=== PATIENT | male | born 1980 | race Caucasian/White ===

== ENCOUNTER 2017-05-25 21:43 | Emergency (ER) | payer SELFPAY ==
[2017-05-25 23:26] VITALS: BP 120/62; PULSE 70; TEMP 98.2; BMI 29.9
[2017-05-26] MEDS ORDERED: KETOROLAC TROMETHAMINE 60 MG/2 ML VIAL IM ONE (02:17)
--- NOTE | 2017-05-26 02:18 | PDOC ---
History of Present Illness - General Chief Complaint: Back Pain Stated Complaint: BACK PAIN Time Seen by Provider: 05/26/17 00:24 - History of Present Illness Initial Comments: 05/26/17 02:18 Chief Complaint: back pain History of Present Illness: 37 yo M with hx of sciatica presents to ED with back pain. Patient states he had an MRI that indicated disc herniation. Past Medical History: sciatica Family History: Denies Social History: Denies toxic habits Surgical history: Denies Allergies: No known drug allergies Review of Systems: GENERAL/CONSTITUTIONAL: No fever or chills. No weakness. No weight change. HEAD, EYES, EARS, NOSE AND THROAT: No change in vision. No ear pain or discharge. No sore throat. CARDIOVASCULAR: No chest pain or shortness of breath. RESPIRATORY: No cough, wheezing, or hemoptysis. GASTROINTESTINAL: No nausea, vomiting, diarrhea or constipation. No rectal bleeding. GENITOURINARY: No dysuria, frequency, or change in urination. MUSCULOSKELETAL: No joint or muscle swelling or pain. No neck or back pain. SKIN AND BREASTS: No rash or easy bruising. NEUROLOGIC: No headache, vertigo, loss of consciousness, or loss of sensation. PSYCHIATRIC: No depression or anxiety. ENDOCRINE: No increased thirst. No abnormal weight change. HEMATOLOGIC/LYMPHATIC: No anemia, easy bleeding, or history of blood clots. ALLERGIC/IMMUNOLOGIC: No hives or skin allergy. No latex allergy. Physical Exam: General Appearance: positive: Appropriately Dressed. negative: Apparent Distress, no intoxication HEENT: positive: EOMI, ODIN, Normal ENT Inspection, Normal Voice, TMs Normal, Pharynx Normal. No Palor of Conjunctivae, Photophobia, Scleral Icterus (R), Scleral Icterus (L) Neck: positive: Trachea midline, Normal Thyroid, Supple. No tenderness, rigidity, Carotid bruit, Stridor, Lymphadenopathy (R), Lymphadenopathy (L), Thyromegaly] Respiratory/Chest: positive: Lungs Clear, Normal Breath Sounds. No Chest Tenderness, Respiratory Distress, Accessory Muscle Use, Labored Respiration, Crackles, Rales, Rhonchi, Stridor, Wheezing, Dullness Cardiovascular: Regular Rhythm, Regular Rate, S1, S2. No JVD, Murmur, Bradycardia, Tachycardia Vascular Pulses: Dorsalis-Pedis (R): 2+, Doralis-Pedis (L): 2+] Gastrointestinal/Abdominal: positive for Normal Bowel Sounds, Flat, Soft. No Tenderness, Organomegaly, Pulsatile Mass, Distention, Guarding, Rebound, Hernia , Hepatomegaly, Spleenomegaly] Lymphatic: negative: Adenopathy, Tenderness] Musculoskeletal: Normal Inspection. No CVA Tenderness, Decreased Range of Motion] Extremity: FROM of all extremities, Normal Capillary Refill, Normal Inspection, Normal Range of Motion, Pelvis Stable. No tenderness, Pedal Edema, Swelling, Erythema or deformity Integumentary: Normal Color, Dry, Warm, . 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 No appreciable EOM Palsy, Facial Droop or Sensory Deficit Past History - Past Medical History Allergies/Adverse Reactions: Allergies Allergy/AdvReac Type Severity Reaction Status Date / Time No Known Allergies Allergy Verified 05/25/17 23:20 Home Medications: Ambulatory Orders Diazepam [Valium] 5 mg PO BID PRN #8 tablet MDD 2 12/18/15 Ibuprofen [Motrin -] 600 mg PO TID PRN #21 tablet 12/18/15 Oxycodone HCl/Acetaminophen [Percocet 5-325 mg Tablet] 1 - 2 tab PO Q4H #10 tablet MDD 5 12/19/15 Cyclobenzaprine HCl [Flexeril -] 10 mg PO HS #7 tablet 05/26/17 Naproxen 250 mg PO BID #14 tablet 05/26/17 - Suicide/Smoking/Psychosocial Hx Smoking History: Never smoked Have you smoked in the past 12 months: No Number of Cigarettes Smoked Daily: 0 Information on smoking cessation initiated: No Hx Alcohol Use: No Drug/Substance Use Hx: No Substance Use Type: None *Physical Exam - Vital Signs Last Vital Signs Temp Pulse Resp BP Pulse Ox 98.2 F 70 18 120/62 99 05/25/17 23:15 05/25/17 23:15 05/25/17 23:15 05/25/17 23:15 05/25/17 23:15 *DC/Admit/Observation/Transfer Diagnosis at time of Disposition: Sciatica, right side - Discharge Dispostion Disposition: HOME Condition at time of disposition: Stable Admit: No - Prescriptions Prescriptions: Cyclobenzaprine HCl [Flexeril -] 10 mg PO HS #7 tablet Naproxen 250 mg PO BID #14 tablet - Referrals Referrals: Devon Zurita MD [Staff Physician] - - Patient Instructions Printed Discharge Instructions: DI for Back Pain With Sciatica Additional Instructions: Please take medications as prescribed; do not drive, drink alcohol, or operate machinery while taking cyclobenzaprine. You must follow up with orthopedics by the end of the week. If you develop any loss of bowel or bladder function, loss of sensation to your legs, inability to walk , or any new or worsening symptoms, please return to the ER. Print Language: MAORI
[2017-05-26] MEDS ORDERED: KETOROLAC TROMETHAMINE 60 MG/2 ML VIAL ONE (02:47)
== END 2017-05-26 04:09 | disposition home or self-care (01) ==
LOC: JER 21:43
PROC: 3E0233Z Introduction of Anti-inflammatory into Muscle, Percutaneous Approach (ICD-10-PCS; principal; 2017-05-25)
DX: M54.31 Sciatica, right side (principal)
CPT/HCPCS: 99282-25

== ENCOUNTER 2018-06-16 18:14 | Emergency (ER) | payer OTHER ==
--- NOTE | 2018-06-16 18:20 | PDOC ---
Rapid Medical Evaluation Time Seen by Provider: 06/16/18 18:17 Medical Evaluation: Allergies Allergy/AdvReac Type Severity Reaction Status Date / Time No Known Allergies Allergy Verified 06/16/18 18:17 06/16/18 18:18 Pt c/o: low back pain w/ rt sided sciatica, no improvement with flexeril, no weakness, incontinence, hx of LBP x many years, had imaging prior, seenn here for the same Pt on brief exam:no midline tenderness, rt paraspinous and sciatica tenderness. Pt ordered for: none pt to proceed to the ED: Discharge Disposition - Diagnosis Lumbar pain with radiation down right leg - Referrals - Patient Instructions - Post Discharge Activity
[2018-06-16 18:21] VITALS: BP 125/59; PULSE 66; TEMP 97.4; BMI 29.9
--- NOTE | 2018-06-16 18:39 | PDOC ---
History of Present Illness - General Chief Complaint: Back Pain Stated Complaint: BACK PAIN Time Seen by Provider: 06/16/18 18:17 - History of Present Illness Initial Comments: 38-year-old male without comorbidities presents for evaluation of lumbar radicular symptoms down the right leg for 2 weeks without any precipitating traumatic event. He has a chronic history of back pain and radicular symptoms. He denies loss of bowel bladder function. No saddle paresthesias. 06/16/18 18:37 Past History - Past Medical History Allergies/Adverse Reactions: Allergies Allergy/AdvReac Type Severity Reaction Status Date / Time No Known Allergies Allergy Verified 06/16/18 18:17 Home Medications: Ambulatory Orders Ibuprofen [Motrin -] 600 mg PO TID PRN #21 tablet 12/18/15 Cyclobenzaprine HCl [Flexeril -] 10 mg PO HS #7 tablet 05/26/17 Methylprednisolone [Medrol Dose Minh] 4 mg PO ASDIR #21 tablet 06/16/18 COPD: No Other medical history: sciatica - Surgical History Abdominal Surgery: No Appendectomy: No Cardiac Surgery: No Cholecystectomy: No Gastric Stapling: No GI Surgery: No Lung Surgery: No Neurologic Surgery: No - Immunization History Immunization Up to Date: No - Suicide/Smoking/Psychosocial Hx Smoking History: Never smoked Have you smoked in the past 12 months: No Number of Cigarettes Smoked Daily: 0 Hx Alcohol Use: No Drug/Substance Use Hx: No Substance Use Type: None Review of Systems - Review of Systems Musculoskeletal: Yes: Back Pain All Other Systems: Reviewed and Negative *Physical Exam - Vital Signs Last Vital Signs Temp Pulse Resp BP Pulse Ox 97.4 F L 66 18 125/59 L 99 06/16/18 18:19 06/16/18 18:19 06/16/18 18:19 06/16/18 18:19 06/16/18 18:19 - Physical Exam Comments: Lumbar spine skin color and temperature are normal range of motion is decreased is moderate right-sided paralumbar musculature spasm and tenderness 5 out of 5 strength bilateral lower extremities without gross sensorimotor deficits. Positive straight leg raise test on the right negative on the left thighs and calves are soft and nontender neurovascular intact 06/16/18 18:38 Medical Decision Making - Medical Decision Making Exacerbation of lumbar radicular symptoms without focal deficits. Discontinue the ibuprofen start a Medrol Dosepak continue Flexeril follow-up with spine surgery 06/16/18 18:38 *DC/Admit/Observation/Transfer Diagnosis at time of Disposition: Lumbar pain with radiation down right leg - Discharge Dispostion Disposition: HOME Condition at time of disposition: Stable Decision to Admit order: No - Prescriptions Prescriptions: Methylprednisolone [Medrol Dose Minh] 4 mg PO ASDIR #21 tablet - Referrals Referrals: Devon Cain MD [Staff Physician] - - Patient Instructions Printed Discharge Instructions: Lumbar Radiculopathy, DI for Lumbar Radiculopathy Additional Instructions: Discontinue the ibuprofen. You may continue your Flexeril. Start the steroid pack and use the medication and finish it as directed. Return to the emergency room should her symptoms worsen or go unresolved. Follow-up with spine surgery in 2-3 days for further evaluation and treatment options. - Post Discharge Activity
== END 2018-06-16 18:59 | disposition home or self-care (01) ==
LOC: JERFT 18:14
DX: M54.16 Radiculopathy, lumbar region (principal)
CPT/HCPCS: 99281-25

== ENCOUNTER 2019-10-05 19:30 | Emergency (ER) | payer OTHER ==
[2019-10-05 19:48] VITALS: BP 135/93; PULSE 83; TEMP 98; BMI 30.7
--- NOTE | 2019-10-05 19:49 | PDOC ---
Rapid Medical Evaluation Time Seen by Provider: 10/05/19 19:46 Medical Evaluation: Allergies Allergy/AdvReac Type Severity Reaction Status Date / Time No Known Allergies Allergy Verified 06/16/18 18:17 10/05/19 19:47 Pt presents to the ER for evaluation of low back pain for 3 days. He states this is a exacerbation of his chronic pain. He has an appointment with his doctor on Thursday, but couldn't wait d/t the pain. No saddle anesthesia or bladder/bowel incontinence. Exam: Midline tenderness to L4-L5. (+) straight leg raise testing on the R. Orders: toradol, lidocaine patch Pt to proceed to the ER for further evaluation Discharge Disposition - Diagnosis Pain in lower back - Referrals - Patient Instructions - Post Discharge Activity
[2019-10-05] MEDS ORDERED: KETOROLAC TROMETHAMINE 60 MG/2 ML VIAL IM ONE (20:13)
[2019-10-05] MEDS ORDERED: KETOROLAC TROMETHAMINE 60 MG/2 ML VIAL ONE (20:17)
--- NOTE | 2019-10-05 20:17 | PDOC ---
History of Present Illness - General Chief Complaint: Chronic pain Stated Complaint: BACK PAIN Time Seen by Provider: 10/05/19 19:46 - History of Present Illness Initial Comments: 10/05/19 20:14 39-year-old male without comorbidities presents for lower back pain with posterior lateral leg right leg radicular symptoms x2 days patient ran out of his Flexeril Past History - Past Medical History Allergies/Adverse Reactions: Allergies Allergy/AdvReac Type Severity Reaction Status Date / Time No Known Allergies Allergy Verified 10/05/19 19:48 Home Medications: Ambulatory Orders Ibuprofen [Motrin -] 600 mg PO TID PRN #21 tablet 12/18/15 Cyclobenzaprine HCl [Flexeril -] 10 mg PO HS #7 tablet 05/26/17 Methylprednisolone [Medrol Dose Minh] 4 mg PO ASDIR #21 tablet 06/16/18 Cyclobenzaprine HCl [Flexeril 10 mg] 10 mg PO HS PRN #10 tablet 10/05/19 Methylprednisolone [Medrol Dose Minh] 4 mg PO ASDIR #21 tablet 10/05/19 COPD: No - Surgical History Abdominal Surgery: No Appendectomy: No Cardiac Surgery: No Cholecystectomy: No Gastric Stapling: No GI Surgery: No Lung Surgery: No Neurologic Surgery: No - Immunization History Immunization Up to Date: No - Psycho Social/Smoking Cessation Hx Smoking History: Never smoked Have you smoked in the past 12 months: No Number of Cigarettes Smoked Daily: 0 Information on smoking cessation initiated: No Hx Alcohol Use: No Drug/Substance Use Hx: No Substance Use Type: None Review of Systems - Review of Systems Constitutional: No: Fever Musculoskeletal: Yes: Back Pain *Physical Exam - Vital Signs Last Vital Signs Temp Pulse Resp BP Pulse Ox 98.0 F 83 17 135/93 99 10/05/19 19:46 10/05/19 19:46 10/05/19 19:46 10/05/19 19:46 10/05/19 19:46 - Physical Exam Lumbar spine skin color temperature normal range of motion is slightly decreased. No midline tenderness. Moderate bilateral paralumbar musculature spasm and tenderness 5 out of 5 strength bilateral lower extremities without gross sensorimotor deficits thighs and calves are soft and nontender neurovascular intact Medical Decision Making - Medical Decision Making 10/05/19 20:15 Patient is on Aleve at home I will stop that today given a shot of Toradol in the emergency room he took Aleve this morning Flexeril and Medrol Dosepak follow -up with neurosurgery ongoing lower back pain unrelieved with pain management and conservative measures Discharge - Discharge Information Problems reviewed: Yes Clinical Impression/Diagnosis: Pain in lower back, Lumbar pain with radiation down right leg Condition: Stable Disposition: HOME - Admission No - Additional Discharge Information Prescriptions: Cyclobenzaprine HCl [Flexeril 10 mg] 10 mg PO HS PRN #10 tablet PRN Reason: Muscle Spasms Methylprednisolone [Medrol Dose Minh] 4 mg PO ASDIR #21 tablet - Follow up/Referral Referrals: Brandon Abrams MD, [facility] [Staff Physician] - - Patient Discharge Instructions Additional Instructions: You were given a shot of a long-acting anti-inflammatory in the emergency room. No anti-inflammatories going forward until you are seen by the specialist. Please start the Medrol Dosepak tomorrow and take the medication as directed you may start the Flexeril this evening. It will help you sleep 1 tablet before bedtime it would also help with your muscle spasm. Return to the emergency room for worsening symptoms. And without fail follow-up with neurosurgery in 2 to 3 days for further evaluation and treatment options. - Post Discharge Activity
== END 2019-10-05 20:21 | disposition home or self-care (01) ==
LOC: JERFT 19:30
PROC: 3E0233Z Introduction of Anti-inflammatory into Muscle, Percutaneous Approach (ICD-10-PCS; principal; 2019-10-05)
DX: M54.5 Low back pain (principal)
CPT/HCPCS: 99282-25

== ENCOUNTER 2019-10-17 15:18 | Emergency (ER) | payer OTHER ==
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
[2019-10-17 15:44] VITALS: BP 124/78; PULSE 80; TEMP 98.5; BMI 29.0
[2019-10-17 16:13] LABS: URINE APPEARANCE CLEAR; URINE BILIRUBIN NEGATIVE (NEGATIVE); URINE COLOR YELLOW; URINE GLUCOSE (UA) NEGATIVE (NEGATIVE); URINE KETONE NEGATIVE (NEGATIVE); URINE LEUK ESTERASE NEGATIVE (NEGATIVE); URINE NITRITE NEGATIVE (NEGATIVE); URINE PROTEIN NEGATIVE (NEGATIVE)
[2019-10-17] MEDS ORDERED: KETOROLAC TROMETHAMINE 60 MG/2 ML VIAL ONE ×2 (18:00→18:06)
[2019-10-17] MEDS ORDERED: KETOROLAC TROMETHAMINE 60 MG/2 ML VIAL IM ONE (18:01)
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
== END 2019-10-17 18:08 | disposition home or self-care (01) ==
LOC: JERFT 15:18
PROC: 3E0233Z Introduction of Anti-inflammatory into Muscle, Percutaneous Approach (ICD-10-PCS; principal; 2019-10-17)
DX: Z04.1 Encounter for examination and observation following transport accident (principal); M54.5 Low back pain; V43.52XA Car driver injured in collision with other type car in traffic accident, initial encounter; Y92.414 Local residential or business street as the place of occurrence of the external cause; Y93.89 Activity, other specified; Y99.8 Other external cause status
CPT/HCPCS: 72100-TC-FY; 81003; 99284-25

== ENCOUNTER 2021-04-05 16:08 | Emergency (ER) | payer OTHER ==
[2021-04-05 16:42] VITALS: BP 129/83; PULSE 97; TEMP 97.7; BMI 31.3
== END 2021-04-05 17:21 | disposition home or self-care (01) ==
LOC: JER 16:08
DX: R09.81 Nasal congestion (principal); Z11.52 Encounter for screening for COVID-19
CPT/HCPCS: 99283-25; C9803; U0003; U0005

== ENCOUNTER 2022-03-13 22:49 | Emergency (ER) | payer OTHER ==
[2022-03-13 22:57] VITALS: BP 138/98; PULSE 87; TEMP 98; BMI 31.4
[2022-03-13] MEDS ORDERED: KETOROLAC TROMETHAMINE 30 MG/1 ML VIAL IVPUSH ONE (23:21)
[2022-03-13] MEDS ORDERED: METHOCARBAMOL 500 MG TABLET PO ONE (23:22)
[2022-03-13] MEDS ORDERED: morphine CARPU-JECT 4 MG/1 ML DISP.SYRIN IVPUSH ONE (23:37)
[2022-03-13] MEDS ORDERED: morphine SULFATE 4 MG/ML VIAL ONE (23:56)
[2022-03-13] MEDS ORDERED: METHOCARBAMOL 500 MG TABLET ONE (23:56)
[2022-03-14] LABS: BASO % 0.5 % (0-2.0); EOS % 4.1 % (0-4.5); HEMOGLOBIN 13.6 GM/dL (11.7-16.9); LYMPH % 22.3 % (8-40); MCH 29.8 pg (25.7-33.7); MEAN CELL VOLUME 87.6 fl (80-96); MEAN PLT VOLUME 6.3 fl (7.5-11.1); MONO % 9.8 % (3.8-10.2); NEUT % 63.3 % (42.8-82.8); PLATELET COUNT 361 10^3/uL (134-434); RBC 4.57 M/mm3 (4.00-5.60); RDW 13.3 % (11.9-15.9); WHITE BLOOD COUNT 11.2 K/mm3 (4.0-10.0)
[2022-03-14 00:22] LABS: CALCIUM 8.7 mg/dL (8.5-10.1)
[2022-03-14 00:23] LABS: ALBUMIN 3.4 g/dl (3.4-5.0)
[2022-03-14 00:26] LABS: CREATININE 0.6 mg/dL (0.55-1.3)
[2022-03-14 00:27] LABS: BILIRUBIN,TOTAL 0.4 mg/dL (0.2-1); TOT PROT 7.1 g/dl (6.4-8.2)
== END 2022-03-14 02:08 | disposition home or self-care (01) ==
LOC: JER 22:49
PROC: 3E033GC Introduction of Other Therapeutic Substance into Peripheral Vein, Percutaneous Approach (ICD-10-PCS; principal; 2022-03-13)
DX: M54.41 Lumbago with sciatica, right side (principal)
CPT/HCPCS: 36415; 72131-TC; 74176-TC; 80053; 85025; 99285-25